=== PATIENT | male | born 1955 | race Two or more races ===

== ENCOUNTER 2024-09-16 07:00 | Day surgery (SDC) | payer OTHER, SELFPAY ==
--- NOTE | 2024-09-15 16:00 | ESHP_ITS ---
RE: GRADY CAZARES : 1955 DATE OF ADMISSION: 09/16/2024 HISTORY OF PRESENT ILLNESS: Grady Cazares is an inmate from a substance abuse treatment facility in [place]. He is a 68-year-old male. The patient had a transurethral resection of the prostate done in [place] about 4 years ago. The patient has been complaining of urinary incontinence and has to wear pampers. He is on Flomax and finasteride. He has frequency of urination, nocturia, and he sometimes uses a catheter at bedtime. PAST SURGICAL HISTORY: Previous surgery included some implant in his chest. He had a right inguinal hernia repair. PAST MEDICAL HISTORY: The patient does not have any history of diabetes mellitus. No history of hypertension. The patient has a history of Parkinson's disease and dementia. PHYSICAL EXAMINATION: HEENT: Normal. Neck: Supple. Lungs: Clear. Cardiovascular: Heart sounds are normal. Abdomen: Soft without any organomegaly. No guarding. No rigidity. Extremities: Normal. HEENT: The patient has some problem with his right eye. Genitourinary: Phallus is normal. Testes were down in the scrotum. Rectal: Examination revealed moderately enlarged smooth prostate. The patient's PSA is 1.97. PLAN: Cystoscopy to evaluate his lower urinary tract. Planned procedure risks and complications have been discussed with the patient. The patient has understood them and agreed to proceed. cc: [facility] DT: 13:43:37 TT: 15:59:00 Ref: [id number] - TID: [id number]
[2024-09-16 07:54] VITALS: BP 125/97; PULSE 74; RESP 17; TEMP 36.6; O2SAT 97; BMI 27.8
[2024-09-16] MEDS: RINGERS LACTATED 500 ML 500 ML 20 ML IV (08:20)
[2024-09-16 08:58] VITALS: BP 112/75; PULSE 78; RESP 12; TEMP 36.3; O2SAT 95
--- NOTE | 2024-09-16 08:58 | SUR.PHASEII ---
0884 patient arrived to recovery resting comfortably in [facility], on oxygen 3L via nasal cannula, breathing unlabored, vital signs stable, denies pain, lung sounds clear upon auscultation, office accompanied patient, patient has metal restraints to bilateral lower extremities and to left wrist, report received from Dr. Arguelles and Daniella CHAVARRIA
[2024-09-16 09:03] VITALS: BP 124/71; PULSE 70; RESP 13; O2SAT 97
[2024-09-16 09:08] VITALS: BP 130/75; PULSE 70; RESP 18; O2SAT 98
[2024-09-16 09:13] VITALS: BP 127/82; PULSE 65; RESP 13; O2SAT 95
[2024-09-16 09:28] VITALS: BP 125/86; PULSE 71; RESP 14; TEMP 36.6; O2SAT 97
--- NOTE | 2024-09-16 09:48 | SUR.PHASEII ---
0948 patient meets discharge criteria from recovery, awake and alert, breathing unlabored, vital signs stable, denies pain, patient drinking 7up; tolerating well, patient assisted with dressing into his clothing by the two officer accompanied with patient, officer applied metal restraints to bilateral wrist and bilateral ankles, discharge instructions given to patient and officer, officer signed discharge instructions. Patient given all his belongings prior to discharge, transported via wheelchair and left in a [facility] van.
--- NOTE | 2024-09-16 11:36 | ESOP_ITS ---
RE: ARLENE CAZARES : 1955 DATE OF OPERATION: 09/16/2024 The patient is an inmate from [facility]. PREOPERATIVE DIAGNOSES: Urinary incontinence, history of transurethral resection of prostate done in [place], history of Parkinson's disease. POSTOPERATIVE DIAGNOSES: Urinary incontinence, history of transurethral resection of prostate done in [place], history of Parkinson's disease. PROCEDURE PERFORMED: Cystourethroscopy and urethral dilatation. ANESTHESIA: Monitored anesthesia by Dr. Fischer. INDICATIONS FOR PROCEDURE: The patient is a 68-year-old male with history of urinary incontinence. He has to wear diapers. He had a history of transurethral resection of prostate done in [place]. He has a history of Parkinson's disease. He is also on Flomax and finasteride. His PSA has been normal at 1.97. He is now scheduled to have cystourethroscopy to evaluate the lower urinary tract. Planned procedure, risks, and complications have been discussed with the patient. The patient understood them and agreed to proceed. DESCRIPTION OF PROCEDURE: After the patient was brought to the operating table under adequate monitored anesthesia given by Dr. Arguelles, he was placed in dorsal lithotomy position. Parts were prepped and draped in the usual fashion. Cystoscopy was then carried out, which revealed adequate urethral meatus, normal-appearing urethra. Prostatic urethra was visualized. External urethral sphincter is working. There is some recurrence of prostate on both lateral lobes. There is an evidence of previous transurethral resection of prostate. There is some recurrence at the bladder neck on the right side. Residual urine is 2 ounces, yellow and clear and was sent for culture and sensitivity examination. There are no intravesical stones or tumors. Ureteral orifices are found to be normal in position and appearance. Scope was withdrawn. The patient tolerated the entire procedure well and left the room in good condition. IMPRESSION: History of transurethral resection of prostate. External urethral sphincter is working. There is minimal to moderate recurrence of prostate. PLAN: The patient's symptoms could be related to his Parkinson's disease. The patient should discontinue his Flomax and see if there is any difference. We will also start him on oxybutynin extended release 5 mg everyday and I will see him in one month's time in my office in [place]. Thank you very much for your kind referral. cc: [facility]stance abuse treatment facility DT: 09:25:33 TT: 11:35:00 Ref: [id number] - TID: [id number]
== END 2024-09-16 09:48 | disposition home or self-care (01) ==
LOC: S2EX 09:37
PROVIDERS: Referring Provider Surgery; Visit Provider Surgery
PROC: 0TJB8ZZ Inspection of Bladder, Via Natural or Artificial Opening Endoscopic (ICD-10-PCS; CPT 52000; principal; 2024-09-16 08:30)
DX: R32 Unspecified urinary incontinence (principal); G20.A1 Parkinson's disease without dyskinesia, without mention of fluctuations; F02.80 Dementia in other diseases classified elsewhere, unspecified severity, without behavioral disturbance, psychotic disturbance, mood disturbance, and anxiety; Z90.79 Acquired absence of other genital organ(s)
CPT/HCPCS: 52000; 80053; 81001; 85025; 87086; A4217; A4649; J2250; J2405; J2704; J3010; J7120